=== PATIENT | female | born 1955 | race Two or more races ===

== ENCOUNTER 2022-10-24 05:20 | Day surgery (SDC) | payer OTHER ==
[~2022-10-24] VITALS: Ht 162.6 cm; Wt 72.1 kg
[~2022-10-24 05:20] MED LIST: CHILDREN'S ASPI81 MG PO; MICARDIS40 MG PO; ZOCOR40 MG PO
== END 2022-10-24 11:25 | disposition home or self-care (01) ==
LOC: CIR.AMB 05:20
PROVIDERS: ATTEND Orthopaedic Surgery
DX: M75.121 Complete rotator cuff tear or rupture of right shoulder, not specified as traumatic (principal); I10 Essential (primary) hypertension; R73.03 Prediabetes; Z20.822 Contact with and (suspected) exposure to COVID-19